=== PATIENT | male | born 1965 | race Caucasian/White ===

== ENCOUNTER 2023-09-28 07:56 | Day surgery (SDC) | payer BC ==
[2023-09-27 13:09] LABS: Absolute Lymphocytes (CBC) 1.4 K/uL (0.7-4.9); Hematocrit 49.3 % (39.6-49.0); Lymphocytes % 17.5 % (15.3-44.8); MCV 86.9 fL (80-100); MPV 6.2 fL (7.6-11.3); Platelets 358 thou/uL (152-406); RBC Red Blood Cell Count 5.68 M/uL (4.33-5.43)
[2023-09-27 13:23] LABS: Potassium 3.6 mEq/L (3.5-5.1)
[2023-09-27 13:41] LABS: Blood Morphology Comment NOT SEEN (NOT SEEN); Platelet Estimate ADEQ; Toxic Granulation 1+; White Blood Cell Scan OK (OK)
[2023-09-28] MEDS: Ringers Lactate 1,000 ML IV ONE ×2 (08:25→11:40)
[2023-09-28] MEDS ORDERED: ONDANSETRON 4 MG/2 ML VIAL ONE (10:12)
[2023-09-28] MEDS ORDERED: propofoL 200 MG/20 ML VIAL IV ONE ×3 (10:12→10:52)
[2023-09-28] MEDS ORDERED: LIDOCAINE 2% MPF 5 ML VIAL ONE (10:12)
[2023-09-28] MEDS ORDERED: FENTANYL CITR 100 MCG/2 ML ONE (10:13)
[2023-09-28] MEDS ORDERED: MIDAZOLAM HCL 2 MG/2 ML INJ ONE (10:13)
[2023-09-28] MEDS ORDERED: HYDROMORPHONE HCL 2 MG/ML inj ONE (10:21)
[2023-09-28] MEDS: CEFAZOLIN SODIUM 2 GM/VIAL ONE (10:30)
[2023-09-28] MEDS ORDERED: EPHEDRINE SULF 50 MG/ML VIAL ONE ×2 (10:42→11:23)
[2023-09-28] MEDS: LIDOCAINE HCL/EPINEPHRINE 20 ML MDV ONE (11:21)
[2023-09-28] MEDS ORDERED: Mastisol Adhesive Liq ONE (13:12)
--- NOTE | 2023-09-28 13:28 | P.OP ---
Date of Service: 09/28/23 Surgeon: Dr. Patience Garza Referring physician: Not applicable, self CPT: 56592 insertion of hypoglossal nerve neurostimulator electrode and generator and breathing sensor electrode Preoperative diagnosis: Obstructive sleep apnea with positive airway pressure intolerance Postoperative diagnosis: Same Anesthesia: General via endotracheal tube Estimated blood loss: 10 to 20 mL Complications: None Intraoperative findings: Excellent protrusion of tongue with stimulation from 1.5 down to 0.3 Brief clinical history: This is a 57-year-old patient with a history of moderate to severe obstructive sleep apnea and an associated body mass index of 29.5. The patient was intolerant and unable to achieve benefit from positive pressure therapy. The patient has passed the clinical, polysomnographic, and endoscopic screening criteria and presents today for implant Procedure description: The patient was brought to the operating room and placed under general anesthesia via endotracheal intubation. The head of bed was turned 180 degrees. The patient's neck and external anatomy was palpated and examined with planned incisions marked with a surgical pen. Monitoring electrodes were placed within the genioglossus and hypoglossal muscle and connected to the NIM box for intraoperative nerve monitoring. A shoulder roll was placed and the neck was extended with a chin turned towards the left for better exposure of the right neck. Prior to prepping, it was noted that the patient's endotracheal tube appeared displaced. Initial attempt at reintubation was unsuccessful and the head of bed was turned back to 0 degrees. The patient was treated with bag mask ventilation and preparation was made with subsequent successful reintubation. The head of bed was then again turned to 180 degrees and the genioglossus and hypoglossal electrodes were replaced. The patient's face, neck, and chest was prepped and draped in a sterile fashion with the head turned to the left for best exposure of the right neck. A modified submandibular incision was made through the skin, approximately 1-1.5 cm below the inferior aspect of the mandible. Dissection was carried down through the subcutaneous tissue and platysma. The platysma was divided and additional dissection was carried out for identification of the anterior/inferior border of the submandibular gland. Due to the posterior location of the submandibular gland, the incision was extended laterally in order to provide adequate exposure. The anterior belly of the digastric muscle was identified and appeared thick and wide. It was traced inferiorly and laterally until the digastric tendon was identified. 2 silk sutures were placed in the digastric tendon to aid in inferior and anterior retraction. Dissection continued down into the digastric triangle and the posterior border of the mylohyoid muscle was freed and retracted anteriorly. With balanced retraction, the hypoglossal nerve was identified and carefully dissected up towards the floor of the mouth. The nerve was noted to be very thick with a moderate sized vein overlying it. This vein was carefully elevated and divided to allow better visualization of the nerve. The C1 branch was identified. The superior/posterior branches innervating the hyoglossus muscle were identified visually with anatomic clues and NIM stimulation. The breakpoint was identified and a vessel loop was passed around C1 and up into the breakpoint. Additional stimulation was performed to confirm inclusion and exclusion branches.. Once the anterior/inferior branches of the hypoglossal nerve were isolated, the cuff electrode for the hypoglossal nerve stimulator (C1778; [id number]) was placed distal to these branches innervating the genioglossus, transverse, and vertical muscles. The stimulation lead was anchored to the digastric tendon using the 2 previously placed silk sutures. Slack between the cuff and the anchor was gently tucked deep to the submandibular gland. A second 5 cm incision was made in the right upper chest over the second intercostal space, approximately 3 cm lateral to the sternal margin. Dissection was carried down through the skin and subcutaneous tissue to the fascia of the pectoralis muscle. A suprafascial inferior pocket for the generator was created with blunt dissection and the LigaSure. The pectoralis major fascia was dissected directly over the second intercostal space with subsequent blunt dissection through the muscle body. The pectoralis was retracted to expose the fatty layer just superficial to the external intercostal muscle. There was a small bridging vessel between aspects of the pectoralis muscle and after careful inspection and initial dissection around this, the vessel was divided in order to allow for adequate exposure to the intercostal muscles. The fatty layer was carefully and bluntly dissected to expose the external intercostal muscles. These were located somewhat laterally but were easily visualized through the existing incision. A small fasciotomy through the external intercostals was performed and the respiratory sensing lead (C1778; [id number]) was advanced with the sensor facing the pleura into the interfascial plane between the external and internal intercostals. The sensing lead was anchored with 3-0 silk to the fascia of the external intercostals. Secondary anchoring sutures of 3-0 silk were placed to the pectoralis major fascia, allowing adequate slack between the anchors. The stimulation lead was then tunneled in a subplatysmal plane with blunt dissection under direct visualization and brought out to the subclavicular pocket where both the stimulation lead and respiratory sensing lead were connected to the implantable pulse generator, using the 2 person, 3 handed approach. The implantable pulse generator (C1767; [id number]) was placed in the subclavicular subcutaneous pocket ensuring lead body was deep to the generator and secured with air knots to the pectoralis fascia using 2-0 silk suture. Diagnostic evaluation confirmed good placement of the stimulation cuff as demonstrated by activation of the genioglossus, and transverse and vertical muscles resulting in unhindered, stiffened tongue protrusion confirmed visually. Diagnostic evaluation also confirmed good respiratory sensor placement as demonstrated by sensing waveform with good rise and fall associated with patient respirations. All the wounds were thoroughly irrigated and closed in 3 layers with deep Polysorb sutures and 4-0 Monocryl subcuticular sutures. Mastisol and Steri- Strips were applied followed by pressure dressings. The patient was awakened, extubated, and transferred to the recovery room in stable condition. I was present for and performed the entire procedure. All sponge and needle counts were confirmed correct by the operating room staff prior to final closure. Postoperative plan: The patient will be discharged home later today in the care of her family and follow-up with Dr. Garza in 10 days for wound check and suture removal if required. He will follow-up with the general passenger agent in about 6 weeks for planned activation of the device.
[2023-09-28] MEDS: ONDANSETRON 4 MG/2 ML VIAL ONE (13:48)
[2023-09-28] MEDS: TRAMADOL HCL 50 MG TAB ONE (14:33)
--- NOTE | 2023-09-28 15:04 | RAD REPORT ---
EXAM DESCRIPTION: RAD - Chest Pa And Lat (2 Views) - 09/28/2023 2:06 pm CLINICAL HISTORY: inspire implant COMPARISON: No comparisons TECHNIQUE: PA and lateral views of the chest were obtained. FINDINGS: Inspire implant back in place overlying the right chest wall with electrode coursing along the right lateral neck. Central interstitial prominence with no focal consolidation. Heart size is n ormal and central vasculature is within normal limits. No pleural effusion or pneumothorax seen. No a cute bony finding noted. IMPRESSION: Central interstitial prominence which may reflect a degree of central congestion. Inspir e planned placed.
--- NOTE | 2023-09-28 15:05 | RAD REPORT ---
EXAM DESCRIPTION: Neck Soft Tissue - 09/28/2023 2:07 pm CLINICAL HISTORY: inspire placement COMPARISON: No comparisons TECHNIQUE: AP and lateral views of the neck soft tissues. FINDINGS: Inspire planned wire courses along the right lateral neck, with electrode terminating in t he deep tissues of the base of tongue. No kink/ breakage of the wire. Upper airway is patent. No susp icious calcifications. IMPRESSION: Spiral implant electrode as above. No obvious complications.
[2023-09-28 16:02] VITALS: BP 152/75; TEMP 98.3; O2SAT 98
--- NOTE | 2023-10-01 14:44 | EKG ---
Test Date: 2023-09-27 Test Time: 13:54:06 Charge Master Analyst: ROCK MEASUREMENT RESULTS: Intervals: Rate: 75 CO: 170 QRSD: 96 QT: 376 QTc: 419 [place]on: P: 61 CO: 170 QRS: 53 T: 52 INTERPRETIVE STATEMENTS: Normal sinus rhythm Normal ECG No previous ECG available for comparison Electronically Signed On 10-01-23 14:32:01 [employer]DOOR ADVERTISING LEASING AGENT by Avinash Woodward
== END 2023-09-28 15:45 | disposition home or self-care (01) ==
LOC: OR 07:56
PROVIDERS: ATTEND Otolaryngology
PROC: 0JH63MZ Insertion of Stimulator Generator into Chest Subcutaneous Tissue and Fascia, Percutaneous Approach (ICD-10-PCS; principal; 2023-09-28 10:15)
DX: G47.33 Obstructive sleep apnea (adult) (pediatric) (principal); Z68.29 Body mass index [BMI] 29.0-29.9, adult
CPT/HCPCS: 93005; 85025; 80048; 36415; 71046; 70360; 64582; J2704 ×3; J2001; J2250; J1170; J3010; J2405 ×2; J7120 ×2